=== PATIENT | female | born 1955 | race Caucasian/White ===

== ENCOUNTER 2017-06-25 18:24 | Inpatient (IN) | payer OTHER ==
[~2017-06-25] VITALS: Ht 162.6 cm; Wt 82.3 kg
[~2017-06-25 18:24] MED LIST: DOCU-131 PO; METH4TAB6 PO; MULT-26 PO; OXYC-302 PO; [UNRECOGNIZED DRUG - OTHER] IM
[2017-06-25] MEDS ORDERED: IBUPROFEN 800 MG TABLET ONE (18:35)
[2017-06-25] MEDS ORDERED: IBUPROFEN 200 MG TABLET PO ONE (19:00)
[2017-06-25 19:08] LABS: BASOPHILS # (AUTO) 0.01 x10^3/uL (0-0.1); BASOPHILS % (AUTO) 0 % (0-1); EOSINOPHILS % (AUTO) 0 % (1-7); LYMPHOCYTES % (AUTO) 5 % (22-44); MD NO; MEAN CORPUSCULAR HEMOGLOBIN 30.4 pg (27.0-34.8); MEAN CORPUSCULAR HGB CONC 33.8 g/dL (32.4-35.8); MEAN PLATELET VOLUME 9.2 fL (7.4-10.4); MONOCYTES # (AUTO) 0.11 x10^3/uL (0.2-0.8); MONOCYTES % (AUTO) 1 % (2-9); NEUTROPHILS # (AUTO) 7.41 x10^3/uL (1.8-6.8); NEUTROPHILS % (AUTO) 93 % (42-75); PLATELET COUNT 140 x10^3/uL (130-400); RED BLOOD COUNT 4.07 x10^6/uL (3.82-5.3); RED CELL DISTRIBUTION WIDTH 16.3 % (9.6-15.2)
[2017-06-25] MEDS ORDERED: CEFTRIAXONE PMX 1GM/50ML 50 ML ONE (19:09)
[2017-06-25 19:17] LABS: INTERNATIONAL NORMALIZED RATIO 1.07 (0.93-1.1)
[2017-06-25 19:20] LABS: ALANINE AMINOTRANSFERASE 93 U/L (12-78); ALBUMIN 2.8 g/dL (3.4-5.0); ANION GAP 12 mmol/L (5-15); CALCIUM 8.7 mg/dL (8.5-10.1); CHLORIDE 106 mmol/L (98-107); CREATININE 1.29 mg/dL (0.55-1.02)
[2017-06-25 19:23] LABS: ALKALINE PHOSPHATASE 100 U/L (45-117); BILIRUBIN,TOTAL 0.6 mg/dL (0.2-1.0); TOTAL PROTEIN 7.2 g/dL (6.4-8.2)
[2017-06-25] MEDS ORDERED: SODIUM CHLORIDE 0.9% 1,000ML IVBOLUS ONE (19:30)
[2017-06-25] MEDS ORDERED: AZITHROMYCIN 500 MG in SODIUM CHLORIDE 0.9% 250 ML IVPB ONE (19:30)
[2017-06-25] MEDS ORDERED: CEFTRIAXONE PMX 1GM/50ML 50 ML IVPB ONE (19:30)
[2017-06-25 19:31] LABS: RAPID INFLUENZA A Negative (Negative); RAPID INFLUENZA B Negative (Negative)
[2017-06-25] MEDS ORDERED: D5%-0.45NACL+KCL 20MEQ 1,000 ML IV SCH (21:10)
[2017-06-25 21:17] VITALS: BP 102/70
[2017-06-25] MEDS: HEPARIN 5,000 UNITS/ML, 1ML SQ SCH (22:35)
[2017-06-26 01:31] VITALS: BP 106/63
[2017-06-26 04:30] LABS: MICROSCOPIC INDICATED
[2017-06-26 04:39] LABS: CULTURE INDICATED? NO
[2017-06-26 05:31] LABS: BASOPHILS % (AUTO) 0 % (0-1); EOSINOPHILS % (AUTO) 0 % (1-7); LYMPHOCYTES % (AUTO) 6 % (22-44); MD NO; MEAN CORPUSCULAR HEMOGLOBIN 29.8 pg (27.0-34.8); MEAN CORPUSCULAR VOLUME 90.4 fL (80-100); MEAN PLATELET VOLUME 9.1 fL (7.4-10.4); MONOCYTES # (AUTO) 0.21 x10^3/uL (0.2-0.8); MONOCYTES % (AUTO) 2 % (2-9); NEUTROPHILS # (AUTO) 8.16 x10^3/uL (1.8-6.8); NEUTROPHILS % (AUTO) 92 % (42-75); PLATELET COUNT 141 x10^3/uL (130-400); RED BLOOD COUNT 4.04 x10^6/uL (3.82-5.3); RED CELL DISTRIBUTION WIDTH 15.7 % (9.6-15.2)
[2017-06-26 05:39] LABS: ANION GAP 10 mmol/L (5-15); CALCIUM 8.7 mg/dL (8.5-10.1); CHLORIDE 106 mmol/L (98-107)
[2017-06-26 05:40] LABS: CREATININE 1.36 mg/dL (0.55-1.02)
[2017-06-26 07:19] VITALS: BP 131/78
[2017-06-26] MEDS: HEPARIN 5,000 UNITS/ML, 1ML SQ SCH ×3 (07:43→23:58)
[2017-06-26] MEDS: ACETAMINOPHEN 325 MG TABLET PO PRN ×2 (08:01→15:04)
[2017-06-26] MEDS ORDERED: ONDANSETRON 2MG/ML, 2ML IVPush ONE (08:30)
[2017-06-26] MEDS ORDERED: ONDANSETRON ODT 4 MG PO ONE (09:00)
[2017-06-26] MEDS ORDERED: AZITHROMYCIN 250 MG TABLET PO SCH (09:00)
[2017-06-26] MEDS: LACTATED RINGERS 1,000 ML IV SCH ×2 (09:36→20:42)
[2017-06-26] MEDS ORDERED: SIMV10TA3 PO (11:44)
[2017-06-26] MEDS ORDERED: SODIUM CHLORIDE 0.9%, 500ML IVBOLUS ONE (12:30)
[2017-06-26 14:35] VITALS: BP 126/69
[2017-06-26] MEDS: OMEPRAZOLE 20 MG CAPSULE.DR PO SCH (16:41)
[2017-06-26] MEDS ORDERED: CEFTRIAXONE 1,000 MG IM SCH (19:00)
[2017-06-26 19:45] VITALS: BP 128/80
[2017-06-26] MEDS ORDERED: CEFTRIAXONE 1,000 MG IVPB SCH (20:00)
[2017-06-26] MEDS ORDERED: CEFTRIAXONE PMX 1GM/50ML 50 ML IV SCH (20:00)
[2017-06-26] MEDS: ACETAMINOPHEN 500 MG TABLET PO PRN (20:49)
[2017-06-27 01:24] VITALS: BP 101/66
[2017-06-27] MEDS: LACTATED RINGERS 1,000 ML IV SCH (05:54)
[2017-06-27] MEDS ORDERED: PIPERACILLIN/TAZO/PMX 3.375GM 50 ML IV SCH (06:00)
[2017-06-27 06:32] LABS: BASOPHILS # (AUTO) 0.01 x10^3/uL (0-0.1); BASOPHILS % (AUTO) 0 % (0-1); EOSINOPHILS % (AUTO) 0 % (1-7); LYMPHOCYTES # (AUTO) 0.68 x10^3/uL (1-3.4); LYMPHOCYTES % (AUTO) 10 % (22-44); MD NO; MEAN CORPUSCULAR HEMOGLOBIN 30.3 pg (27.0-34.8); MEAN CORPUSCULAR HGB CONC 33.7 g/dL (32.4-35.8); MEAN PLATELET VOLUME 9.2 fL (7.4-10.4); MONOCYTES # (AUTO) 0.13 x10^3/uL (0.2-0.8); MONOCYTES % (AUTO) 2 % (2-9); NEUTROPHILS # (AUTO) 6.37 x10^3/uL (1.8-6.8); NEUTROPHILS % (AUTO) 89 % (42-75); PLATELET COUNT 125 x10^3/uL (130-400); RED BLOOD COUNT 3.48 x10^6/uL (3.82-5.3); RED CELL DISTRIBUTION WIDTH 16.2 % (9.6-15.2)
[2017-06-27 07:05] VITALS: BP 107/72
[2017-06-27 07:43] VITALS: BP 110/72
[2017-06-27] MEDS: HEPARIN 5,000 UNITS/ML, 1ML SQ SCH ×2 (08:41→16:42)
[2017-06-27] MEDS: OMEPRAZOLE 20 MG CAPSULE.DR PO SCH ×2 (08:43→16:42)
[2017-06-27] MEDS: ACETAMINOPHEN 500 MG TABLET PO PRN ×2 (10:28→20:44)
[2017-06-27 12:30] VITALS: BP 96/67
[2017-06-27] MEDS ORDERED: GADOBUTROL 10 MMOL/10 ML PFS ONE (14:42)
[2017-06-27 18:55] VITALS: BP 127/85
[2017-06-27] MEDS ORDERED: CEFTRIAXONE 1,000 MG IVPB SCH (19:00)
[2017-06-27] MEDS: SIMVASTATIN 10 MG TABLET PO SCH (20:44)
[2017-06-28 00:30] VITALS: BP 118/79
[2017-06-28] MEDS: HEPARIN 5,000 UNITS/ML, 1ML SQ SCH ×3 (02:14→17:00)
[2017-06-28] MEDS: LACTATED RINGERS 1,000 ML IV SCH ×2 (02:15→21:09)
[2017-06-28 06:03] LABS: ALBUMIN 2.1 g/dL (3.4-5.0); ANION GAP 6 mmol/L (5-15); CALCIUM 9.3 mg/dL (8.5-10.1); CHLORIDE 106 mmol/L (98-107); CREATININE 0.88 mg/dL (0.55-1.02)
[2017-06-28 06:11] LABS: BASOPHILS % (AUTO) 0 % (0-1); EOSINOPHILS % (AUTO) 0 % (1-7); LYMPHOCYTES # (AUTO) 0.65 x10^3/uL (1-3.4); LYMPHOCYTES % (AUTO) 12 % (22-44); MD NO; MEAN CORPUSCULAR HEMOGLOBIN 29.8 pg (27.0-34.8); MEAN CORPUSCULAR HGB CONC 33.5 g/dL (32.4-35.8); MEAN CORPUSCULAR VOLUME 89.1 fL (80-100); MEAN PLATELET VOLUME 9.9 fL (7.4-10.4); MONOCYTES # (AUTO) 0.12 x10^3/uL (0.2-0.8); MONOCYTES % (AUTO) 2 % (2-9); NEUTROPHILS # (AUTO) 4.76 x10^3/uL (1.8-6.8); NEUTROPHILS % (AUTO) 86 % (42-75); PLATELET COUNT 139 x10^3/uL (130-400); RED BLOOD COUNT 3.39 x10^6/uL (3.82-5.3); RED CELL DISTRIBUTION WIDTH 16.4 % (9.6-15.2)
[2017-06-28 08:45] VITALS: BP 121/78
[2017-06-28] MEDS: OMEPRAZOLE 20 MG CAPSULE.DR PO SCH ×2 (08:53→18:38)
[2017-06-28 13:15] VITALS: BP 117/71
[2017-06-28 18:57] VITALS: BP 102/64
[2017-06-28] MEDS: SIMVASTATIN 10 MG TABLET PO SCH (21:08)
[2017-06-29] MEDS: HEPARIN 5,000 UNITS/ML, 1ML SQ SCH ×2 (00:48→09:00)
[2017-06-29 01:56] VITALS: BP 119/77
[2017-06-29] MEDS ORDERED: SODIUM CHLORIDE INHALATION 7%, 4 ML NPPB STA (04:56)
[2017-06-29 04:59] LABS: BASOPHILS # (AUTO) 0.01 x10^3/uL (0-0.1); BASOPHILS % (AUTO) 0 % (0-1); EOSINOPHILS % (AUTO) 0 % (1-7); LYMPHOCYTES # (AUTO) 0.95 x10^3/uL (1-3.4); LYMPHOCYTES % (AUTO) 11 % (22-44); MD NO; MEAN CORPUSCULAR HEMOGLOBIN 29.7 pg (27.0-34.8); MEAN CORPUSCULAR HGB CONC 33.4 g/dL (32.4-35.8); MEAN CORPUSCULAR VOLUME 89.1 fL (80-100); MEAN PLATELET VOLUME 9.7 fL (7.4-10.4); MONOCYTES # (AUTO) 0.28 x10^3/uL (0.2-0.8); MONOCYTES % (AUTO) 3 % (2-9); NEUTROPHILS # (AUTO) 7.27 x10^3/uL (1.8-6.8); NEUTROPHILS % (AUTO) 86 % (42-75); PLATELET COUNT 167 x10^3/uL (130-400); RED BLOOD COUNT 3.24 x10^6/uL (3.82-5.3); RED CELL DISTRIBUTION WIDTH 16.6 % (9.6-15.2)
[2017-06-29 05:07] LABS: CHLORIDE 105 mmol/L (98-107)
[2017-06-29 05:12] LABS: ANION GAP 8 mmol/L (5-15); CALCIUM 8.6 mg/dL (8.5-10.1); CREATININE 0.84 mg/dL (0.55-1.02)
[2017-06-29 09:11] VITALS: BP 114/75
[2017-06-29] MEDS: OMEPRAZOLE 20 MG CAPSULE.DR PO SCH (09:56)
[2017-06-29] MEDS ORDERED: AZIT250T89 PO (12:33)
[2017-06-29] MEDS ORDERED: AMOX1TAB64 PO (12:33)
[2017-06-29 13:05] VITALS: BP 108/66
== END 2017-06-29 15:08 | disposition home or self-care (01) | DRG 871 ==
LOC: ED 19:49 → EDIP 20:07 → 3NE 21:13 → DCLOUNGE 06-29 14:55
PROVIDERS: ADMIT Family Medicine; ATTEND Family Medicine
DX: A41.9 Sepsis, unspecified organism (principal); J18.1 Lobar pneumonia, unspecified organism; J96.01 Acute respiratory failure with hypoxia; N17.9 Acute kidney failure, unspecified; G35 Multiple sclerosis; M48.02 Spinal stenosis, cervical region; G83.9 Paralytic syndrome, unspecified; E86.0 Dehydration; Z60.2 Problems related to living alone; K59.00 Constipation, unspecified; Z66 Do not resuscitate; R13.10 Dysphagia, unspecified; E78.5 Hyperlipidemia, unspecified; Z80.1 Family history of malignant neoplasm of trachea, bronchus and lung; Z87.891 Personal history of nicotine dependence; Z72.89 Other problems related to lifestyle; Z79.899 Other long term (current) drug therapy
CPT/HCPCS: 36415; 70553; 71045; 71046; 71250; 72156; 74230; 80048; 80053; 81001; 82040; 83605; 84145; 85025; 85610; 85730; 86480; 87040; 87070; 87205; 87400; 93005; 96365; 99291; A9585; J0456; J0696; J1644; J2543; J2930; J3480; J7030; J7040; J7050; J7120

== ENCOUNTER → 2018-06-26 | Outpatient (CLI) | payer MEDICARE ==
[~2018-06-26] MED LIST changes: +AMOX1TAB64 PO; +AZIT250T89 PO; +INTE30SY INJ; +LISI1TAB5 PO; +SIMV10TA3 PO
[2018-06-26 14:38] LABS: BASOPHILS # (AUTO) 0.03 x10^3/uL (0-0.1); BASOPHILS % (AUTO) 1 % (0-1); EOSINOPHILS # (AUTO) 0.07 x10^3/uL (0-0.4); EOSINOPHILS % (AUTO) 2 % (1-7); LYMPHOCYTES # (AUTO) 1.45 x10^3/uL (1-3.4); LYMPHOCYTES % (AUTO) 30 % (22-44); MD NO; MEAN CORPUSCULAR HEMOGLOBIN 31.1 pg (27.0-34.8); MEAN CORPUSCULAR HGB CONC 33.6 g/dL (32.4-35.8); MEAN CORPUSCULAR VOLUME 92.5 fL (80-100); MEAN PLATELET VOLUME 9.3 fL (7.4-10.4); MONOCYTES # (AUTO) 0.31 x10^3/uL (0.2-0.8); MONOCYTES % (AUTO) 6 % (2-9); NEUTROPHILS # (AUTO) 2.98 x10^3/uL (1.8-6.8); NEUTROPHILS % (AUTO) 62 % (42-75); PLATELET COUNT 177 x10^3/uL (130-400); RED BLOOD COUNT 4.63 x10^6/uL (3.82-5.3); RED CELL DISTRIBUTION WIDTH 14.1 % (9.6-15.2)
[2018-06-26 14:46] LABS: ALBUMIN 4.1 g/dL (3.4-5.0); ANION GAP 5 mmol/L (5-15); CALCIUM 9.4 mg/dL (8.5-10.1); CHLORIDE 105 mmol/L (98-107)
[2018-06-26 14:55] LABS: ALANINE AMINOTRANSFERASE 24 U/L (12-78); ALKALINE PHOSPHATASE 52 U/L (45-117); BILIRUBIN,TOTAL 0.7 mg/dL (0.2-1.0); CREATININE 1.04 mg/dL (0.55-1.02); TOTAL PROTEIN 7.7 g/dL (6.4-8.2)
== END | disposition home or self-care (01) ==
LOC: STAR 13:28
PROVIDERS: ATTEND Surgery
DX: Z01.818 Encounter for other preprocedural examination (principal); R94.31 Abnormal electrocardiogram [ECG] [EKG]
CPT/HCPCS: 36415; 71046; 80053; 82378; 85025; 93005

== ENCOUNTER 2018-07-03 07:55 | Inpatient (IN) | payer MEDICARE ==
[~2018-07-03] VITALS: Ht 162.6 cm; Wt 78.8 kg
[~2018-07-03 07:55] MED LIST changes: +BUPIVACAINE/PF 0.5% ONE
[2018-07-03] MEDS ORDERED: LIDOCAINE-MPF 1%, 2ML ONE (08:36)
[2018-07-03] MEDS: LACTATED RINGERS 1,000 ML IV SCH (08:49)
[2018-07-03] MEDS ORDERED: LIDOCAINE-MPF 1%, 2ML INFIL ONE (09:00)
[2018-07-03] MEDS ORDERED: MIDAZOLAM 1 MG/ML, 2ML ONE (10:11)
[2018-07-03] MEDS ORDERED: FENTANYL PF 250 MCG/5ML ONE (10:11)
[2018-07-03] MEDS ORDERED: ACETAMINOPHEN 500 MG TABLET ONE (10:27)
[2018-07-03] MEDS ORDERED: FENTANYL PF 100 MCG/2ML IV PRN (10:30)
[2018-07-03] MEDS ORDERED: hydrALAzine 20 MG/ML, 1ML IV PRN (10:30)
[2018-07-03] MEDS ORDERED: ONDANSETRON 2MG/ML, 2ML IV PRN (10:30)
[2018-07-03] MEDS ORDERED: ACETAMINOPHEN 500 MG TABLET PO ONE (10:30)
[2018-07-03] MEDS ORDERED: PROMETHAZINE 25 MG/ML, 1ML IV PRN (10:30)
[2018-07-03] MEDS ORDERED: LABETALOL 5MG/ML, 20ML IV PRN (10:30)
[2018-07-03] MEDS ORDERED: HYDROmorphone 2 MG/ML, 1ML IVPush PRN (10:30)
[2018-07-03] MEDS ORDERED: ACETAMINOPHEN 325 MG TABLET PO PRN (10:30)
[2018-07-03] MEDS ORDERED: ONDANSETRON ODT 8 MG PO PRN (10:30)
[2018-07-03] MEDS ORDERED: OXYcodone 5 MG/5 ML ORAL.SOL UDC PO PRN (10:30)
[2018-07-03] MEDS ORDERED: CEFOTETAN PMX 2GM/50ML 50 ML IVPB ONE (10:35)
[2018-07-03] MEDS ORDERED: SUGAMMADEX 200 MG/2 ML IVPush ONE (11:51)
[2018-07-03] MEDS ORDERED: NEOSTIGMINE 1 MG/ML, 10ML ONE (11:51)
[2018-07-03] MEDS ORDERED: CEFAZOLIN 1,000 MG ONE (11:51)
[2018-07-03] MEDS ORDERED: GLYCOPYRROLATE 0.2MG/1ML, 5ML ONE (11:51)
[2018-07-03] MEDS ORDERED: ROCURONIUM 10MG/ML,5ML ONE (11:51)
[2018-07-03] MEDS ORDERED: SUCCINYLCHOLINE 20 MG/ML, 10ML ONE (11:51)
[2018-07-03] MEDS ORDERED: PROPOFOL 10 MG/ML, 20ML ONE (11:51)
[2018-07-03] MEDS ORDERED: DEXAMETHASONE 4 MG/ML, 1ML ONE (11:51)
[2018-07-03] MEDS ORDERED: ONDANSETRON 2MG/ML, 2ML ONE (11:51)
[2018-07-03] MEDS ORDERED: DIPHENHYDRAMINE 50 MG/ML, 1ML IVPush PRN (12:30)
[2018-07-03] MEDS ORDERED: HYDROmorphone 1 MG/ML, 1ML INJ IVPush PRN (12:30)
[2018-07-03] MEDS ORDERED: CALCIUM CARBONATE 500 MG TAB.CHEW PO PRN (12:30)
[2018-07-03] MEDS ORDERED: LORazepam 2 MG/ML, 1ML IVPush PRN (12:30)
[2018-07-03] MEDS ORDERED: SCOPOLAMINE PATCH, 1.5MG PATCH.TD72 TD PRN (12:30)
[2018-07-03] MEDS ORDERED: DEXAMETHASONE 4 MG/ML, 1ML IVPush PRN (12:30)
[2018-07-03] MEDS ORDERED: ONDANSETRON 2MG/ML, 2ML IVPush PRN (12:30)
[2018-07-03] MEDS ORDERED: OXYcodone IR 5MG TABLET PO PRN (12:30)
[2018-07-03] MEDS ORDERED: HALOPERIDOL 5 MG/ML IVPush PRN (12:30)
[2018-07-03] MEDS ORDERED: OXYcodone 5 MG/5 ML ORAL.SOL UDC ONE (12:38)
[2018-07-03] MEDS ORDERED: D5%-0.45NACL+KCL 20MEQ 1,000 ML IV SCH (13:46)
[2018-07-03] MEDS: IBUPROFEN 800 MG TABLET PO SCH ×2 (17:12→20:34)
[2018-07-03] MEDS: ACETAMINOPHEN 100 ML IVPB SCH ×2 (17:12→23:01)
[2018-07-03] MEDS: SIMVASTATIN 10 MG TABLET PO SCH (20:35)
[2018-07-03 20:57] VITALS: BP 95/60
[2018-07-04 01:20] VITALS: BP 85/43
[2018-07-04 03:27] LABS: BASOPHILS # (AUTO) 0.01 x10^3/uL (0-0.1); BASOPHILS % (AUTO) 0 % (0-1); EOSINOPHILS % (AUTO) 0 % (1-7); LYMPHOCYTES # (AUTO) 0.82 x10^3/uL (1-3.4); LYMPHOCYTES % (AUTO) 12 % (22-44); MD NO; MEAN CORPUSCULAR HEMOGLOBIN 31.8 pg (27.0-34.8); MEAN CORPUSCULAR VOLUME 93.6 fL (80-100); MEAN PLATELET VOLUME 9.1 fL (7.4-10.4); MONOCYTES # (AUTO) 0.55 x10^3/uL (0.2-0.8); MONOCYTES % (AUTO) 8 % (2-9); NEUTROPHILS # (AUTO) 5.63 x10^3/uL (1.8-6.8); NEUTROPHILS % (AUTO) 80 % (42-75); PLATELET COUNT 140 x10^3/uL (130-400); RED BLOOD COUNT 3.91 x10^6/uL (3.82-5.3); RED CELL DISTRIBUTION WIDTH 13.5 % (9.6-15.2)
[2018-07-04 03:39] LABS: ANION GAP 8 mmol/L (5-15); CALCIUM 8.8 mg/dL (8.5-10.1); CHLORIDE 103 mmol/L (98-107); CREATININE 1.56 mg/dL (0.55-1.02)
[2018-07-04] MEDS: ACETAMINOPHEN 100 ML IVPB SCH ×2 (04:50→10:41)
[2018-07-04] MEDS ORDERED: METOCLOPRAMIDE 5 MG/ML, 2ML ONE (06:21)
[2018-07-04] MEDS: METOCLOPRAMIDE 5 MG/ML, 2ML IVPush SCH ×3 (06:22→18:23)
[2018-07-04] MEDS ORDERED: SODIUM CHLORIDE 0.9% 1,000ML IVBOLUS ONE (06:30)
[2018-07-04 07:20] VITALS: BP 91/59
[2018-07-04] MEDS: IBUPROFEN 800 MG TABLET PO SCH ×3 (09:09→22:19)
[2018-07-04] MEDS ORDERED: ENOXAPARIN 40 MG/0.4 ML SQ SCH (10:30)
[2018-07-04] MEDS: LACTATED RINGERS 1,000 ML IV SCH (10:31)
[2018-07-04 12:13] VITALS: BP 88/54
[2018-07-04 20:40] VITALS: BP 96/60
[2018-07-04] MEDS: SIMVASTATIN 10 MG TABLET PO SCH (22:19)
[2018-07-05] MEDS: METOCLOPRAMIDE 5 MG/ML, 2ML IVPush SCH ×2 (01:41→06:39)
[2018-07-05 02:16] VITALS: BP 101/66
[2018-07-05 03:21] LABS: BASOPHILS # (AUTO) 0.02 x10^3/uL (0-0.1); BASOPHILS % (AUTO) 0 % (0-1); EOSINOPHILS # (AUTO) 0.06 x10^3/uL (0-0.4); EOSINOPHILS % (AUTO) 1 % (1-7); LYMPHOCYTES # (AUTO) 1.35 x10^3/uL (1-3.4); LYMPHOCYTES % (AUTO) 24 % (22-44); MD NO; MEAN CORPUSCULAR HGB CONC 34.1 g/dL (32.4-35.8); MEAN CORPUSCULAR VOLUME 93.9 fL (80-100); MEAN PLATELET VOLUME 9.2 fL (7.4-10.4); MONOCYTES # (AUTO) 0.27 x10^3/uL (0.2-0.8); MONOCYTES % (AUTO) 5 % (2-9); NEUTROPHILS # (AUTO) 4.04 x10^3/uL (1.8-6.8); NEUTROPHILS % (AUTO) 70 % (42-75); PLATELET COUNT 121 x10^3/uL (130-400); RED BLOOD COUNT 3.53 x10^6/uL (3.82-5.3); RED CELL DISTRIBUTION WIDTH 13.8 % (9.6-15.2)
[2018-07-05 03:31] LABS: ANION GAP 6 mmol/L (5-15); CALCIUM 8.2 mg/dL (8.5-10.1); CHLORIDE 111 mmol/L (98-107)
[2018-07-05 03:32] LABS: CREATININE 1.03 mg/dL (0.55-1.02)
[2018-07-05 07:00] VITALS: BP 102/67
[2018-07-05] MEDS: IBUPROFEN 800 MG TABLET PO SCH (08:18)
[2018-07-05 09:40] VITALS: BP 115/79
== END 2018-07-05 10:55 | disposition home or self-care (01) | DRG 329 ==
LOC: ORIP 07:55 → 4NOR 13:42 → DCLOUNGE 07-05 10:40
PROVIDERS: ADMIT Surgery; ATTEND Surgery
PROC: 3E0T3BZ Introduction of Anesthetic Agent into Peripheral Nerves and Plexi, Percutaneous Approach (ICD-10-PCS; 2018-07-03)
PROC: 0DTF4ZZ Resection of Right Large Intestine, Percutaneous Endoscopic Approach (ICD-10-PCS; principal; 2018-07-03 10:00)
DX: C18.3 Malignant neoplasm of hepatic flexure (principal); N17.0 Acute kidney failure with tubular necrosis; I10 Essential (primary) hypertension; E78.5 Hyperlipidemia, unspecified; E78.00 Pure hypercholesterolemia, unspecified; G35 Multiple sclerosis; Z80.0 Family history of malignant neoplasm of digestive organs; Z80.8 Family history of malignant neoplasm of other organs or systems; Z87.891 Personal history of nicotine dependence
CPT/HCPCS: 36415; 80048; 85025; 88307; G0378; J0131; J0690; J1100; J2250; J2405; J2704; J2710; J3010; J0330; J2765; J3480; J3490; J7030; J7120

== ENCOUNTER → 2019-01-30 | Outpatient (CLI) | payer MEDICARE ==
[~2019-01-30] MED LIST changes: -BUPIVACAINE/PF 0.5% ONE; +LISI1TAB19 PO; -LISI1TAB5 PO; +OMNIPAQUE 350 MG/ML, 100ML BOTTLE ONE
== END | disposition home or self-care (01) ==
LOC: CFH 12:40
PROVIDERS: ATTEND Surgery
DX: K76.89 Other specified diseases of liver (principal); N28.1 Cyst of kidney, acquired; Z87.891 Personal history of nicotine dependence; Z85.038 Personal history of other malignant neoplasm of large intestine
CPT/HCPCS: 71260; 74177; Q9967

== ENCOUNTER → 2019-05-01 | Outpatient (CLI) | payer MEDICARE ==
[~2019-05-01] MED LIST changes: -OMNIPAQUE 350 MG/ML, 100ML BOTTLE ONE; +SIMV10TA18 PO; -SIMV10TA3 PO
== END | disposition home or self-care (01) ==
LOC: PETCFH 12:28
PROVIDERS: ATTEND Surgery
DX: C18.9 Malignant neoplasm of colon, unspecified (principal); K57.90 Diverticulosis of intestine, part unspecified, without perforation or abscess without bleeding
CPT/HCPCS: 78815; A9552